=== PATIENT | male | born 1985 | race Caucasian/White ===

== ENCOUNTER 2019-06-20 17:29 | Emergency (ER) | payer OTHER ==
[~2019-06-20] VITALS: Ht 182.9 cm; Wt 84.5 kg
[2019-06-20 20:35] VITALS: BP 118/68
== END 2019-06-20 20:52 | disposition home or self-care (01) ==
LOC: EMS 17:40
DX: U07.1 COVID-19 (principal)
CPT/HCPCS: 87430; 87635